=== PATIENT | male | born 1995 | race Caucasian/White ===

== ENCOUNTER 2021-01-22 18:22 | Emergency (ER) | payer OTHER ==
[~2021-01-22] VITALS: Ht 180.3 cm; Wt 99.8 kg
[2021-01-22 18:38] VITALS: BP 162/80
[2021-01-22] MEDS ORDERED: KETOROLAC TROMETH 60MG/2ML VIAL IM ONE (22:45)
[2021-01-22] MEDS ORDERED: ONDANSETRON HCL 4 MG/2 ML VIAL IM ONE (22:45)
== END 2021-01-22 23:02 | disposition home or self-care (01) ==
LOC: ER 18:22
DX: G43.909 Migraine, unspecified, not intractable, without status migrainosus (principal); L56.8 Other specified acute skin changes due to ultraviolet radiation; R11.2 Nausea with vomiting, unspecified
CPT/HCPCS: 70450; 96372; 99284; J1885; J2405